=== PATIENT | male | born 1980 | race Two or more races ===

== ENCOUNTER 2018-07-11 15:18 | Emergency (ER) | payer BC, OTHER ==
[~2018-07-11] VITALS: Ht 177.8 cm; Wt 86.7 kg
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
[2018-07-11] MEDS ORDERED: HYDROCODONE/APAP 5/325MG 1 EACH TABLET PO ONE (16:00)
[2018-07-11] MEDS ORDERED: HYDROCODONE/APAP 5/325MG 1 EACH TABLET ONE (16:04)
[2018-07-11 17:15] VITALS: BP 110/71
--- NOTE | 2018-07-11 17:16 | NUR ---
Patient discharged to home in stable condition. Written and verbal after care instructions given. Patient verbalizes understanding of instruction.
== END 2018-07-11 17:16 | disposition home or self-care (01) ==
LOC: ER 15:24
DX: M25.561 Pain in right knee (principal); X50.9XXA Other and unspecified overexertion or strenuous movements or postures, initial encounter; Y93.89 Activity, other specified; Y92.89 Other specified places as the place of occurrence of the external cause; Y99.8 Other external cause status
CPT/HCPCS: 29505; 73564; 99283; A4606